=== PATIENT | female | born 1985 | race Caucasian/White ===

== ENCOUNTER 2023-01-06 10:55 | Emergency (ER) | payer OTHER, SELFPAY ==
[2023-01-06 10:59] VITALS: BP 152/92; PULSE 81; RESP 16; TEMP 36.7; O2SAT 100; BMI 27.9
--- NOTE | 2023-01-06 11:05 | ED.SKABFB ---
HPI - Skin/Abscess/Foreign Bdy General Chief complaint: Skin/Abscess/Foreign Body Stated complaint: sent by [facility]/ t-2 food stuck in throat Time Seen by Provider: 01/06/23 10:58 Source: patient Mode of arrival: Ambulatory Limitations: no limitations History of Present Illness HPI narrative: Patient is a 37-year-old female who 2 days ago was eating some chicken and pasta when she states that she felt like something got stuck in her upper throat. Since that time she feels like it is still there and that maybe it moves up and down she swallows her burps but she is still able to breathe fine and tolerate secretions and eat. This is never happened to her in the past. She went to the walk-in clinic and was instructed to come to the emergency department for further evaluation. Related Data Allergies Allergy/AdvReac Type Severity Reaction Status Date / Time Iodinated Contrast Media AdvReac Verified 01/06/23 11:04 iodine AdvReac Verified 01/06/23 11:04 levofloxacin [From Levaquin] AdvReac Verified 01/06/23 11:04 moxifloxacin [From Avelox] AdvReac Verified 01/06/23 11:04 Review of Systems Constitutional Constitutional: Reports system reviewed and no additional complaints, except as documented ENT Ears, Nose, Mouth, and Throat: Reports system reviewed and no additional complaints, except as documented Respiratory Respiratory: Reports system reviewed and no additional complaints, except as documented Exam Initial Vital Signs Initial Vital Signs: Vital Signs Temperature 98.1 F 01/06/23 10:59 Pulse Rate 81 01/06/23 10:59 Respiratory Rate 16 01/06/23 10:59 Blood Pressure 152/92 H 01/06/23 10:59 Pulse Oximetry 100 01/06/23 10:59 Oxygen Delivery Method Room Air 01/06/23 10:59 HENMT Head: normal to inspection and normocephalic Mouth: oral mucosae normal and moist mucous membranes Throat: posterior oropharynx normal Resp Effort & Inspection: normal respiratory effort Auscultation: clear to auscultation bilaterally Skin General: no rashes or lesions noted Neuro General: patient alert, patient awake and moves all extremities Course Orders Ordered: ED Orders 01/06/23 11:12 CT chest wo con Stat Vital Signs Vital signs: Vital Signs - 8 hr 11/15/23 10:59 Temperature 98.1 F Pulse Rate 81 Respiratory Rate 16 Blood Pressure 152/92 H Pulse Oximetry 100 Oxygen Delivery Method Room Air MDM - Skin/Abscess/Foreign Bdy Lab Data Labs: Point of Care Testing Test Results Negative Imaging Data CT scan - chest: Radiologist's Impression: PROCEDURE: CT CHEST WO CON INDICATIONS: Concern for esophageal foreign body TECHNIQUE: Noncontrast 5 mm thick sections acquired from the pulmonary apices to the posterior costophrenic angles. 1 mm lung window, 5 mm thick coronal and sagittal and 7 mm axial MIP reformats were then acquired. For radiation dose reduction, the following was used: automated exposure control, adjustment of mA and/or kV according to patient size. COMPARISON: None. FINDINGS: Image quality: Excellent. Lungs and pleura: No acute air space opacities. No pleural effusions or pneumothorax. Central and peripheral airways are patent and normal in caliber. Partially calcified nodule at the left base, likely a granuloma. 3 mm right lower lobe nodule (3/239). 3 mm right lower lobe subpleural nodule (3/202). Mediastinum: Heart size is normal. No pericardial effusion. No mediastinal adenopathy by size criteria. Thoracic aorta and central pulmonary arteries are normal in size. Esophagus is normal in caliber. Small contrast is seen within the esophagus. No extraluminal contrast. No hiatal hernia. Bones and chest wall: No suspicious bony lesions. No vertebral body compression fractures. No axillary or supraclavicular adenopathy by size criteria. Thyroid gland is unremarkable . Abdomen: Visualized upper abdominal solid organs and bowel loops appear normal in the absence of contrast. IMPRESSION: 1. No findings to explain patient's symptoms. Small contrast is seen within the esophagus. No extraluminal contrast. 2. No acute cardiopulmonary process. 3. Few scattered pulmonary nodules measuring 3 mm or less, favored to be benign in a patient of this age. MDM Narrative Medical decision making narrative: I did discuss the case with Dr. Dixon on-call for General surgery who recommended the patient have a CT scan with oral contrast. This did not show any signs of foreign body or inflammation. Dr. Dixon reviewed the CT scan herself. Patient tolerated the barium without any issues. Plan will be to put her on Maalox for the next couple days to try to soothe the esophagus. She was given follow-up information for General surgery if her symptoms do not improve. She was given return precautions. Discharge Plan Departure Patient Disposition: Home Clinical Impression: Pain in throat Activity Restrictions/Additional Instructions: I recommend that you use either Maalox or Mylanta which is an [id number] medicine for the next couple days. This can help soothe the esophagus. I also recommend soft foods. You can advance your diet as tolerated. If your symptoms do not improve in the next week you can contact the general surgery department at the number provided below for a follow-up. Referrals: Bharat Watson MD [Physician] - Provider,Ivan MARTINEZ [Primary Care Provider] - Stand Alone Forms: Patient Portal/API
--- NOTE | 2023-01-06 11:12 | DI.CT.S_ITS ---
PROCEDURE: CT CHEST WO CON INDICATIONS: Concern for esophageal foreign body TECHNIQUE: Noncontrast 5 mm thick sections acquired from the pulmonary apices to the posterior costophrenic angles. 1 mm lung window, 5 mm thick coronal and sagittal and 7 mm axial MIP reformats were then acquired. For radiation dose reduction, the following was used: automated exposure control, adjustment of mA and/or kV according to patient size. COMPARISON: None. FINDINGS: Image quality: Excellent. Lungs and pleura: No acute air space opacities. No pleural effusions or pneumothorax. Central and peripheral airways are patent and normal in caliber. Partially calcified nodule at the left base, likely a granuloma. 3 mm right lower lobe nodule (3/239). 3 mm right lower lobe subpleural nodule (3/202). Mediastinum: Heart size is normal. No pericardial effusion. No mediastinal adenopathy by size criteria. Thoracic aorta and central pulmonary arteries are normal in size. Esophagus is normal in caliber. Small contrast is seen within the esophagus. No extraluminal contrast. No hiatal hernia. Bones and chest wall: No suspicious bony lesions. No vertebral body compression fractures. No axillary or supraclavicular adenopathy by size criteria. Thyroid gland is unremarkable . Abdomen: Visualized upper abdominal solid organs and bowel loops appear normal in the absence of contrast. IMPRESSION: 1. No findings to explain patient's symptoms. Small contrast is seen within the esophagus. No extraluminal contrast. 2. No acute cardiopulmonary process. 3. Few scattered pulmonary nodules measuring 3 mm or less, favored to be benign in a patient of this age. Dictated by: Jesus Hernandez M.D. on 01/06/2023 at 12:10 Approved by: Jesus Hernandez M.D. on 01/06/2023 at 12:14
--- NOTE | 2023-01-06 12:02 | PC.NURSE ---
Pt states 2 days ago ate chicken eda and believes she has a piece stuck in back of throat. Pt is able to tolerate own secretions, pt has eaten since Wednesday and is able to drink and hold down liquids. Described as lump in her throat 99% RA.
[2023-01-06 12:55] VITALS: BP 128/85; PULSE 77; RESP 16; O2SAT 100
== END 2023-01-06 12:56 | disposition home or self-care (01) ==
PROVIDERS: Emergency Provider Emergency Medicine
DX: R07.0 Pain in throat (principal)
CPT/HCPCS: 71250; 81025; 99283; 99284